=== PATIENT | female | born 1955 | race Caucasian/White ===

== ENCOUNTER 2024-11-06 17:01 | Emergency (ER) | payer OTHER, SELFPAY ==
[2024-11-06 17:03] VITALS: BP 142/61
[2024-11-06 17:05] VITALS: BP 142/61
[2024-11-06 17:21] LABS: Hematocrit 34.4 % (37.0-47.0); Hemoglobin 12.0 g/dL (12.0-16.0); Mean Corp Hgb Conc. 34.9 g/dL (33.0-37.0); Mean Corpuscular Volume 89.4 fL (81.0-99.0); Nucleated Red Blood Cells % 0 %; Platelet Count 192 10^3/uL (130-400); Red Cell Dist. Width 14.9 % (11.5-14.5)
[2024-11-06 17:36] LABS: ALT (SGPT) 25 U/L (0-35); AST (SGOT) 52 U/L (14-36); Albumin 2.8 g/dl (3.5-5.0); Alkaline Phosphatase 70 U/L (38-126); Blood Urea Nitrogen 18 mg/dl (7-17); Calcium 7.8 mg/dl (8.4-10.2); Carbon Dioxide 26 mmol/L (22-30); Chloride 105 mmol/L (98-107); Glucose 137 mg/dl (70-99); Potassium 4.0 mmol/L (3.5-5.1); Sodium 135 mmol/L (135-145); Total Protein 5.8 g/dl (6.3-8.2); eGFR 37.49
--- NOTE | 2024-11-06 18:19 | ED.GENMED ---
History of Present Illness
<Janelle Burgess PA-C - Last Filed: 11/06/24 20:55>
General
Chief Complaint: Fall
Source: patient
Exam Limitations: none
Time Seen by Provider: 11/06/24 17:08
Nursing documentation reviewed up to this point in time: agreed with
History of Present Illness
History of Present Illness:
Patient is a 68-year-old female with history insulin-dependent diabetes, hypertension, hyperlipidemia who presents to the emergency department via EMS for evaluation following unwitnessed fall. Patient is a poor historian and unable to contribute
much to history. However�her states that he found her lying on the laundry room floor this afternoon around 1:30 PM. He believes she may have been lying there for a few hours.
The fall was unwitnessed and we are unsure if she lost consciousness or struck her head.
Patient currently denies any complaints. She denies any headache or neck pain. She denies any pain in her upper or lower extremities. No numbness/tingling in her extremities. She denies any dizziness or visual changes. No chest pain or
shortness of breath.
Patient is not on any blood thinners.
She claims that she did not eat much today because she was 'busy '.
Past History
<Janelle Burgess PA-C - Last Filed: 11/06/24 20:55>
Past History
ED Past Medical History: HTN and Hypercholesterolemia
Social History
Tobacco: Smoker
Personal:
Living: with family
Review of Systems
<Janelle Burgess PA-C - Last Filed: 11/06/24 20:55>
Review of Systems
Allergies reviewed?: Yes
All Other Systems: ROS reviewed and negative except as documented in HPI and ROS
Phy Exam
<Janelle Burgess PA-C - Last Filed: 11/06/24 20:55>
Physical Exam
Physical Exam:
GENERAL: No acute distress
HEENT: atraumatic, extraocular muscles intact, no signs of entrapment, dentition intact, no other obvious trauma
NECK: no midline tenderness, normal range of motion, no other obvious trauma. Protecting airway
BACK: no midline tenderness, no other obvious trauma
CHEST: no tenderness, no flail segment, no subcutaneous emphysema, no other obvious trauma
LUNGS: clear to auscultation bilaterally
CARDIOVASCULAR: regular rate and rhythm
ABDOMEN: soft, non-tender, no masses, no other obvious trauma
PELVIS: stable, no obvious injury
EXTREMITIES: Extremities nontender without deformity and full range of motion. Distal pulses intact.
NEUROLOGIC: awake, alert x [address], not time. Fluid speech. Strength intact and equal in bilateral upper and lower extremities. Sensation intact. No focal deficits
Course
<Janelle Burgess PA-C - Last Filed: 11/06/24 20:55>
Orders/Labs/Results
Orders:
Orders
11/06/24 17:02
Electrocardiogram (*1) Urgent
Reason for Study: Fatigue / Weakness
EKG- Treatment ONCE
11/06/24 17:13
Complete Blood Count/With Diff Urgent
Comprehensive Metabolic Panel Urgent
Creatine Phosphokinase Urgent
Comment: ADD ON
11/06/24 17:40
Add On- LAB Urgent
Tests Added?: CPK
Cervical Spine wo Contrast CT [CT Cervical Spine W/o Iv Contr] Urgent
Comment:
Reason For Exam: unwitnessed fall
11/06/24 17:42
CT Head W/o Iv Contrast Urgent
Comment:
Reason For Exam: unwitnessed fall
0.9% Sodium Chloride 1000 ml [Nss] 1,000 ml IV BOLUS
11/06/24 18:23
Troponin I Urgent
Urinalysis Reflex To Culture Urgent
Date Specimen was Collected: 11/06/24
Time Specimen was Collected: 18:22
Urine Microscopic Reflex Cult Urgent
Urine Culture Urgent
ÁNGEL Source: U
Specimen Description:
Date Specimen was Collected: 11/06/24
Time Specimen was Collected: 18:22
11/06/24 20:05
Acetaminophen [Tylenol] 650 mg PO NOW STA
Abnormal Lab Results
11/06/24 11/06/24
17:13 18:23
RBC 3.85 L 10^6/uL
(4.20-5.40)
Hct 34.4 L %
(37.0-47.0)
MCH 31.2 H pg
(27.0-31.0)
RDW 14.9 H %
(11.5-14.5)
MPV 10.6 H fL
(7.4-10.4)
Absolute Neuts (auto) 8.8 H 10^3/uL
(1.4-6.5)
Absolute Lymphs (auto) 0.6 L 10^3/uL
(1.2-3.4)
Neutrophils % 88.6 H %
(42.2-75.2)
Lymphocytes % 5.9 L %
(20.5-51.1)
BUN 18 H mg/dl
(7-17)
Creatinine 1.5 H mg/dL
(0.6-1.0)
Glucose 137 H mg/dl
(70-99)
Calcium 7.8 L mg/dl
(8.4-10.2)
Total Bilirubin 1.6 H mg/dl
(0.2-1.3)
AST 52 H U/L
(14-36)
Creatine Kinase 328 H U/L
(30-135)
Total Protein 5.8 L g/dl
(6.3-8.2)
Albumin 2.8 L g/dl
(3.5-5.0)
Urine Bacteria (Reflex) Moderate A
(Negative)
Urine Albumin (Reflex) 1+ A
(Neg - Trace)
11/06/24 17:13
11/06/24 17:13
Vital Signs
Initial and Last Documented VS:
Initial Vital Signs
Temp Pulse Resp BP Pulse Ox
97.9 F 84 18 142/61 99
11/06/24 17:03 11/06/24 17:03 11/06/24 17:03 11/06/24 17:03 11/06/24 17:03
Last Documented Vital Signs
Temp Pulse Resp BP Pulse Ox
97.9 F 78 16 142/74 100
11/06/24 17:03 11/06/24 20:15 11/06/24 20:15 11/06/24 20:00 11/06/24 18:19
<Ever Brandon PA-C - Last Filed: 11/09/24 09:20>
Orders/Labs/Results
Orders:
Orders
11/06/24 17:02
Electrocardiogram (*1) Urgent
Reason for Study: Fatigue / Weakness
EKG- Treatment ONCE
11/06/24 17:13
Complete Blood Count/With Diff Urgent
Comprehensive Metabolic Panel Urgent
Creatine Phosphokinase Urgent
Comment: ADD ON
11/06/24 17:40
Add On- LAB Urgent
Tests Added?: CPK
Cervical Spine wo Contrast CT [CT Cervical Spine W/o Iv Contr] Urgent
Comment:
Reason For Exam: unwitnessed fall
11/06/24 17:42
CT Head W/o Iv Contrast Urgent
Comment:
Reason For Exam: unwitnessed fall
0.9% Sodium Chloride 1000 ml [Nss] 1,000 ml IV BOLUS
09/11/25 18:23
Troponin I Urgent
Urinalysis Reflex To Culture Urgent
Date Specimen was Collected: 11/06/24
Time Specimen was Collected: 18:22
Urine Microscopic Reflex Cult Urgent
Urine Culture Urgent
ÁNGEL Source: U
Specimen Description:
Date Specimen was Collected: 11/06/24
Time Specimen was Collected: 18:22
11/06/24 20:05
Acetaminophen [Tylenol] 650 mg PO NOW STA
Abnormal Lab Results
11/06/24 11/06/24
17:13 18:23
RBC 3.85 L 10^6/uL
(4.20-5.40)
Hct 34.4 L %
(37.0-47.0)
MCH 31.2 H pg
(27.0-31.0)
RDW 14.9 H %
(11.5-14.5)
MPV 10.6 H fL
(7.4-10.4)
Absolute Neuts (auto) 8.8 H 10^3/uL
(1.4-6.5)
Absolute Lymphs (auto) 0.6 L 10^3/uL
(1.2-3.4)
Neutrophils % 88.6 H %
(42.2-75.2)
Lymphocytes % 5.9 L %
(20.5-51.1)
BUN 18 H mg/dl
(7-17)
Creatinine 1.5 H mg/dL
(0.6-1.0)
Glucose 137 H mg/dl
(70-99)
Calcium 7.8 L mg/dl
(8.4-10.2)
Total Bilirubin 1.6 H mg/dl
(0.2-1.3)
AST 52 H U/L
(14-36)
Creatine Kinase 328 H U/L
(30-135)
Total Protein 5.8 L g/dl
(6.3-8.2)
Albumin 2.8 L g/dl
(3.5-5.0)
Urine Bacteria (Reflex) Moderate A
(Negative)
Urine Albumin (Reflex) 1+ A
(Neg - Trace)
11/06/24 17:13
11/06/24 17:13
Vital Signs
Initial and Last Documented VS:
Initial Vital Signs
Temp Pulse Resp BP Pulse Ox
97.9 F 84 18 142/61 99
11/06/24 17:03 11/06/24 17:03 11/06/24 17:03 11/06/24 17:03 11/06/24 17:03
Last Documented Vital Signs
Temp Pulse Resp BP Pulse Ox
97.9 F 78 16 142/74 100
11/06/24 17:03 11/06/24 20:15 11/06/24 20:15 11/06/24 20:00 11/06/24 18:19
<Janelle Burgess PA-C - Last Filed: 11/06/24 20:55>
MDM/Problems Addressed
Differential Diagnosis Includes:
Not limited to: Acute dehydration, rhabdomyolysis, intracerebral hemorrhage, cervical spine fracture, cardiac arrhythmia, acute dehydration, etc.
MDM/Problems Addressed:
68-year-old female presenting after unwitnessed fall at home, found down in her laundry room. Patient herself has no current complaints including headache, neck pain, pain in extremities, chest pain or shortness of breath. She is not on any oral
anticoagulation. Patient poor historian and circumstances of fall are uncertain. She has been able to ambulate since fall.
Patient mildly hypertensive, otherwise with stable vital signs on arrival. On exam patient�in no apparent distress, resting comfortably. She is A&O x [address] She is moving all extremities and has equal strength and normal sensation
bilaterally. No cervical spine or midline spinal tenderness elicited on exam. She is protecting her airway and has fluid speech. No evidence of chest or abdominal trauma. She has full range of motion in all extremities without evidence of
traumatic injury.
Differential as above. Given unwitnessed nature of his fall as well as unknown time patient was on the ground�will check basic labs, CPK, troponin. Will obtain UA. Will obtain CT imaging head/cervical spine and EKG. Will give IV fluids. Will
closely monitor and reassess after above.
Update: Labs significant for renal insufficiency with creatinine of 1.5 as well as hypocalcemia and mildly elevated CPK level consistent with likely acute dehydration. She is currently receiving a liter of IV fluids. Troponin undetectable and
urine without clear evidence of infection. EKG normal sinus rhythm without acute ischemic changes. CT imaging pending.
Update 6:07 PM: Spoke with radiologist via [place] text who notes essentially nondisplaced fracture at base of odontoid on CT cervical spine. CT head without acute traumatic injuries. Patient was immediately placed in a hard cervical spine collar.
She remains essentially asymptomatic and neurologically intact. She will require transfer to a trauma facility. Discussed with patient and family -Will attempt to transfer to [facility] per patient request.
Update: Spoke with trauma surgeon at [facility] as well as orthospine surgery at [place] who recommend transfer downtown to [facility] for further care in case surgical management is required. At this point�patient and family
request transfer to [place].
Update: I did speak with [facility], Dr. Florian who accepts patient to trauma service however during my conversation RN approached me and stated that patient and family have changed her mind they would prefer transfer down to [place] [facility]. At this point�[place].
Update: Discussed case with [facility] trauma team and Dr. Shafer who accept patient under trauma service. She will be transported to emergency department at [facility]. Transfer forms signed by patients . She remains
neurologically intact and in stable condition. Will give Tylenol for headache. Transportation estimation 9:30 PM.
Chronic conditions affecting care:
Insulin-dependent diabetes, hypertension
Acute Exacerbation and/or Progression of Chronic Illness:
Acutely hypertensive
<Janelle Burgess PA-C - Last Filed: 11/06/24 20:55>
*Radiology
Radiology exam reviewed: radiology read reviewed
*Pulse Oximetry
SaO2: 100
Oxygen Mode of Delivery: Room air
Patient hypoxic: no
*EKG
Interpreted by ED Provider?: Yes
EKG Intrepretation Date: 11/06/24
Interpretation: normal
Comparison EKG: no comparison EKG present
Heart Rate: 73
Rate: normal
Rhythm: sinus
[place]: normal axis
Interval: normal interval
QRS Pattern: normal QRS
Ischemia: no ischemia
*Glass Cutter Helper Interpretation
Rate: normal
Interpretation: normal
Heart Rate: 76
Rhythm: sinus
*Critical Care Note
Total Time (30-74mins, 75-104mins- exclusive of procedures): 35
comment:
Critical care statement: A total of 35 minutes of critical care time was provided for this patient. This includes management of unstable vital signs, evaluation of the patient at bedside, reviewing the patient's pertinent medical records, discussion
with consultants, review of old EKGs and review of pertinent medical records. This time with separate from time utilized to perform the aforementioned documented procedures
<Janelle Burgess PA-C - Last Filed: 11/06/24 20:55>
Patient Management
Discussion with other providers: [employer] (Case discussed with trauma team at [facility]) and Radiologist
Escalation/DeEscalation of care consider admission/obs:
Transfer indicated to trauma center for further care of fracture at base of odontoid.
<Ever Brandon PA-C - Last Filed: 11/09/24 09:20>
Update Note
Update Note:
Patient had positive urine culture for multiple organisms however there are low colony-forming units for both. Patient was transferred to [facility]. A fax was sent to [phone] for the medical team there to determine if they
would like to initiate antibiotics.
ED Attending Note
<Janelle Burgess PA-C - Last Filed: 11/06/24 20:55>
-
Portions of this chart may have been created with voice recognition software.� Occasional wrong word or��sound alike� substitutions may have occurred due to the inherent limitations of voice recognition software.
Discharge Plan
Departure
Patient Disposition: Acute Care Hospital
Date of Disposition: 11/06/24
Time of Disposition: 20:40
Discharge Problem:
Odontoid fracture, EDISON (acute kidney injury), Hypocalcemia
Prescriptions:
No Action
furosemide 40 mg Tablet
40 mg PO BID
atorvastatin 20 mg Tablet
20 mg PO DAILY
famotidine 40 mg Tablet
40 mg PO DAILY
metoprolol succinate 100 mg Tablet Extended Release 24 Hr
100 mg PO DAILY
amlodipine 5 mg Tablet
5 mg PO DAILY
ergocalciferol (vitamin D2) 50,000 unit Tablet
PO
pantoprazole 40 mg Tablet,Delayed Release (Dr/Ec)
40 mg PO DAILY
calcipotriene 0.005 % Cream
1 applic TOPICAL BID
hydrocortisone 2.5 % Cream
1 applic TOPICAL BID PRN (Reason: itchy)
hydrochlorothiazide 25 mg Tablet
25 mg PO DAILY
betamethasone valerate 0.12 % Foam
1 applic TOPICAL BID
cholecalciferol (vitamin D3) 25 mcg (1,000 unit) Capsule
25 mcg PO DAILY
rosuvastatin 10 mg Tablet
10 mg PO
Rx Instructions:
every other day
clobetasol 0.05 % Shampoo
1 applic TOPICAL HS
metformin 500 mg Tablet Extended Release 24hr
500 mg PO BID
fenofibrate 150 mg Capsule
145 mg PO DAILY
magnesium glycinate 100 mg Tablet
100 mg PO DAILY
insulin degludec 100 unit/mL (3 mL) Insulin Pen
18 unit SC DAILY
(DME) FreeStyle Piyush 14 Day Sensor Kit
MISCELLANEOUS
Ozempic 0.25 mg or 0.5 mg (2 mg/3 mL) Pen Injector
0.25 mg SC QWEEK
Rx Instructions:
for 4 weeks
Referrals:
Tyshawn He MD [Family Provider, Internal Medicine]
Hospital Transfer
Other hospital: [facility]
I certify that the patient requires transfer: Yes
Discussed case with accepting physician: Dr. Shafer
Reason for transfer: higher level of care and specialties available
Interventions
Interventions:
*Risk Screen - Suicide Last Done: 11/06/24 17:12
*General Assessment Last Done: 11/06/24 20:00
*Neglect/Abuse Screening Last Done: 11/06/24 17:12
*ED- Fall Risk Assessment Last Done: 11/06/24 20:00
*Nursing Disposition Last Done: 11/06/24 21:30
ED-Musculoskeletal Assessment Last Done: 11/06/24 17:12
ED- Neurological Assessment Last Done: 11/06/24 17:09
ED-Skin Assessment Last Done: 11/06/24 17:12
Discharge Date and Time
Discharge Date/Time: 11/06/24 21:31
Print Language: GREENLAND[place]
[2024-11-06 18:30] VITALS: BP 148/70
[2024-11-06 18:30] LABS: Urine Character Cloudy (Clear)
[2024-11-06] MEDS: NSS 1000 IV (18:31)
[2024-11-06 18:59] LABS: Troponin I < 0.012 ng/ml
[2024-11-06 19:00] VITALS: BP 149/59
[2024-11-06 19:10] VITALS: BMI 36.7
[2024-11-06 19:11] LABS: Urine Urothelial Cell 0-2 /LPF (FEW)
[2024-11-06 19:12] LABS: Urine Red Blood Cell 0-2 /HPF (0-2)
[2024-11-06 20:00] VITALS: BP 142/74
[2024-11-06] MEDS: TYLENOL 650 MG PO (20:08)
== END 2024-11-06 21:31 | disposition short-term general hospital (02) ==
LOC: EMR 17:01
PROVIDERS: Physician Assistant; EMERGENCY PHYSICIAN Emergency Medicine; FAMILY PHYSICIAN Internal Medicine
DX: S12.121A Other nondisplaced dens fracture, initial encounter for closed fracture (principal); W19.XXXA Unspecified fall, initial encounter; E78.00 Pure hypercholesterolemia, unspecified; I10 Essential (primary) hypertension; Z79.4 Long term (current) use of insulin; N17.9 Acute kidney failure, unspecified; E83.51 Hypocalcemia; F17.200 Nicotine dependence, unspecified, uncomplicated
CPT/HCPCS: 96360; 99291; 70450; 72125; 80053; 81003; 81015; 82550; 84484; 85025; 87077; 87086; 87186; 93005